=== PATIENT | male | born 1950 | race African-American/Black ===

== ENCOUNTER 2019-07-18 01:15 | Day surgery (SDC) | payer BC, SELFPAY ==
[2019-07-07 14:39] VITALS: BP 160/92; PULSE 54; RESP 18; TEMP 37.2; O2SAT 100; BMI 20.2
[2019-07-18] VITALS (15 sets, daily range): BP systolic 103–152; BP diastolic 64–92; PULSE 55–75; RESP 13–18; TEMP 36.2–36.7; O2SAT 90–100; BMI 19.6
[2019-07-18] MEDS: LACTATED RINGERS 1,000 ML 30 ML IV CONT ×2 (06:56→11:41)
--- NOTE | 2019-07-18 07:14 | P.PNAN_ITS ---
Anes - Initial Pre Proc Eval Procedure: Operation Date: 07/18/19 07:30 Proposed Procedures p Robotic Assisted Nerve Sparing Prostatectomy, Possible Pelvic Lymph Node Dissection - Gareth Solo MD Date/Time: 07/18/19 07:14 Surgeon: Gareth Solo MD Pre Op Diagnosis: Prostate Ca Patient Data Age: 69 Gender: M Height: 5 ft 10 in Weight: 60 kg Last Vital Signs Temp 98.0 F 07/18/19 06:21 Pulse 64 07/18/19 06:21 Resp 18 07/18/19 06:21 BP 152/92 H 07/18/19 06:21 Pulse Ox 100 07/18/19 06:21 Allergies Allergy/AdvReac Type Severity Reaction Status Date / Time No Known Allergies Allergy Verified 07/18/19 06:48 Home Medications Medication Instructions Recorded Confirmed Type amlodipine 5 mg PO DAILY 07/07/19 07/18/19 History atenolol 100 mg PO DAILY 07/07/19 07/18/19 History atorvastatin 10 mg PO DAILY 07/07/19 07/18/19 History hydrochlorothiazide 12.5 mg PO DAILY 07/07/19 07/18/19 History meloxicam 7.5 mg PO DAILY 07/07/19 07/18/19 History Patient hx anesthesia problems: none Family hx anesthesia problems: none [facility] Past Medical History Medical History (Updated 07/18/19 @ 07:13 by Tyler Nguyen MD) Hyperlipidemia Hypertension Prostate cancer Social History Social History Smoking packs per day: 1 Smoking cigarettes per day: 20.0 Years smoked: 40 Smoking pack-years: 40.00 Smoking status: Current every day smoker Alcohol intake: unknown Anes - Eval Final PreProcedure Day of Procedure 07/18/19 07:14 Patient weight: normal Heart: regular rate and rhythm Lungs: clear to auscultation Airway: Mallampati scale class II Neurological: alert and oriented Last oral intake: >/= 8 hours ASA classification: III Emergent: no Anesthetic plan: proceed Anesthesia type and monitoring: general ETT and standard monitoring Informed Consent: The patient's anesthetic plan and its attendant risks and benefits were discussed with the patient/family/POA. Questions were solicited and answers provided to the satisfaction of the patient/family/POA.
--- NOTE | 2019-07-18 07:16 | WPDHPUPDATE1 ---
History and Physical Update Update Date/Time: 07/18/19 07:16 History and Physical has been reviewed, including an updated exam of the patient. There are NO changes in the patient's condition. Risks, benefits, and alternatives have been discussed and questions answered. Patient agrees to proceed with procedure.
[2019-07-18] MEDS: ceFAZolin 2 GM/D5W 50 ML 2 GM/50 ML BAG IVPB (07:33)
--- NOTE | 2019-07-18 09:11 | SUR.OPER ---
patient maintains position and morin drainage jackie.
--- NOTE | 2019-07-18 11:22 | P.OP_ITS ---
Procedure Note - Detailed Date of procedure: 07/18/19 Pre-op diagnosis: Prostate Ca Post-op diagnosis: same Procedure performed: Robotic assisted bilateral nerve-sparing prostatectomy with right pelvic lymph node dissection Description of procedure: Patient was taken to the operative suite correctly identified. Once general anesthesia was obtained he was placed in low lying dorsal lithotomy position prepped draped usual sterile fashion. Sixty Georgian Joy was inserted into the bladder inflated with 10 cc of sterile saline. All pressure points were padded. A supraumbilical incision was made carried down to the rectus fascia. Veress needle was inserted and the abdomen insufflated to 15 mm Hg pressure. Appropriate working ports were placed in their locations. Patient was placed in steep Trendelenburg position and the robot was docked. He had quite a bit of adhesions along the sigmoid colon which were taken down. A standard posterior approach was performed. Seminal vesicles were dissected out in their entirety of the vas is were transected. The plane between the prostate and the rectum was developed. Bladder was then taken down in a standard fashion. Space of Retzius was developed. We will prosthetics were taken down. Dorsal venous complex was isolated using 0 Vicryl in then secured to the pubic bone. Bladder neck was then incised. Joy catheter was deflated and the posterior bladder neck was then transected. We were able to expose the previously dissected seminal vesicles and vas. Lateral pedicles were then taken down as well clipped. Bilateral nerve sparing was then performed in the standard fashion. Prostate was then lifted off of the rectum. Dorsal venous complex was transected. Urethra was also transected. Specimen was then placed Endo-Catch bag. A left pelvic lymph node dissection was performed with the borders being the obturator nerve and external iliac vein Ez's ligament and bifurcation. Surgicel was then placed over the dissected nerves as well as the right obturator fossa. The non VA was then reapproximated using 0 Vicryl. We performed a urethral stump to bladder neck reconstruction using V lock suture in a running fashion. There was good approximation of the mucosa. We placed a 16 Georgian Joy with 10 cc in the balloon and inflated the bladder to 180 cc. There was good hemostasis as well as no evidence of extravasation. A Carlos Eduardo- Mejia drain was then brought out through the most lateral arm port on the right. This was secured. All lap count needle count sponge counts were correct. Blood loss was only 50 cc. The robot was undocked. The Endo-Catch bag was then brought out through the midline incision. Rectus fascia was closed using 0 Vicryl in a running fashion. Subcuticular stitches were then placed in the skin. The skin was anesthetized using 1% lidocaine. Patient is taken recovery room stable condition. Anesthesia: GETA Surgeon: Gareth Solo MD Estimated blood loss (mL): 50 Drains: Yes Packing: No Pathology: yes Complications: No immediate complications Condition: stable Disposition: PACU
--- NOTE | 2019-07-18 12:20 | SUR.PHASEI ---
1210: Report given to KAI Zamora.
--- NOTE | 2019-07-18 12:34 | SUR.PHASEI ---
1230- family updated and sent to floor.
[2019-07-18] MEDS: HYDROMORPHONE HCL 1 MG/ML INJ 0.5 MG IV PUSH (12:49)
--- NOTE | 2019-07-18 14:54 | PC.NURSE ---
This patient, Cony Shoemaker Jr., was admitted to [facility] Surg Room 310-01. Patient/family oriented to hospital policies and general routines including ID bracelet, bed and alarms, visiting hours, pain management, procedures, bathroom and other care routines, personal items, smoking policy, room service/diet, and visiting hours. Valuables list has been completed. Information on how to activate the Rapid Response Team has been discussed. Patient/Family are encouraged to report perceived risks to care and to ask questions if they do not understand what they are told or what they should do.
[2019-07-18] MEDS: LACTATED RINGERS 1,000 ML 125 ML IV CONT (16:46)
[2019-07-18] MEDS: MORPHINE SULFATE 2 MG/ML INJ 1 MG IV PUSH ×2 (16:52→20:24)
[2019-07-19] VITALS (8 sets, daily range): BP systolic 112–137; BP diastolic 71–88; PULSE 68–78; RESP 14–20; TEMP 36.6–38.1; O2SAT 93–100
[2019-07-19] MEDS: LACTATED RINGERS 1,000 ML 125 ML IV CONT (01:55)
[2019-07-19] MEDS: MORPHINE SULFATE 2 MG/ML INJ 1 MG IV PUSH (02:20)
[2019-07-19 06:31] LABS: Hematocrit 35.9 % (42.0-52.0); Hemoglobin 12.2 g/dL (14.0-18.0)
[2019-07-19 06:44] LABS: Blood Urea Nitrogen 17 mg/dL (9-20); Calcium 8.8 mg/dL (8.4-10.2); Carbon Dioxide 27 mmol/L (22-30); Chloride 96 mmol/L (98-107); Estimated CRCL calculation 67 ml/min; Estimated Glomerular Filt Rate > 60; Glucose 110 mg/dL (75-110); Sodium 134 mmol/L (137-145)
[2019-07-19] MEDS: hydroCHLOROthiazide 12.5 MG CAPSULE PO (08:54)
[2019-07-19] MEDS: AMLODIPINE BESYLATE 5 MG TABLET PO (08:59)
[2019-07-19] MEDS: ATORVASTATIN 10 MG TABLET PO (09:00)
[2019-07-19] MEDS: HYOSCYAMINE SULFATE 0.125 MG TABLET SUBLINGUAL ×2 (09:12→13:21)
--- NOTE | 2019-07-19 09:17 | WPDUROPN2 ---
Progress Note: A&P Assessment and Plan (1) Prostate cancer: Code(s): C61 - Malignant neoplasm of prostate Status: Acute Assessment and Plan: Patient will keep morin in until next week after cystogram is completed. EAN ok to remove, very little output, apply a dry dressing and change daily and PRN according to drainage outuput. Patient will eat a clear liquid diet this am and advance to regular diet this afternoon. If he tolerates food and drink well, he is ok to discharge home this afternoon. Subjective Subjective Date/Time Seen: 07/19/19 09:17 POD #1 Prostatectomy Review of Systems Cardiovascular: Cardiovascular: Denies chest pain and Denies chest pain at rest Gastrointestinal: Gastrointestinal: Reports abdominal pain (only tender at incision sites), Denies diarrhea, Denies nausea and Denies vomiting Genitourinary: Genitourinary: Reports hematuria and Reports other (morin catheter in place) Exam Resp: Effort & Inspection: normal respiratory effort Cardio: Rate: regular rate GI: GI Palp: Yes Tenderness to palpation present (GI) (at incision sites only, all are well approximated, no drainage present) : Meatus: Blood at meatus present Urinary Catheter: Urinary Catheter: patent and draining, urine clear and urine pink Extrem: General: no edema Objective Data Vital Signs Vital Signs: Vital Signs - 24 hr 07/18/19 11:40 07/18/19 11:55 07/18/19 12:10 Temperature 97.1 F L Pulse Rate 55 L 56 L 57 L Respiratory Rate 16 15 16 Blood Pressure 103/64 112/69 123/72 Pulse Oximetry 100 100 100 07/18/19 12:25 07/18/19 12:40 07/18/19 12:55 Temperature Pulse Rate 64 65 62 Respiratory Rate 18 18 15 Blood Pressure 109/70 120/73 116/72 Pulse Oximetry 96 95 95 07/18/19 13:10 07/18/19 13:25 07/18/19 13:40 Temperature Pulse Rate 60 70 64 Respiratory Rate 14 13 14 Blood Pressure 112/73 128/80 106/76 Pulse Oximetry 95 97 98 07/18/19 13:50 07/18/19 14:05 07/18/19 15:42 Temperature 97.4 F L 97.4 F L Pulse Rate 68 66 66 Respiratory Rate 16 16 16 Blood Pressure 121/77 114/75 Pulse Oximetry 90 91 91 07/18/19 15:59 07/18/19 22:00 07/19/19 02:00 Temperature 98 F 98.6 F Pulse Rate 70 75 77 Respiratory Rate 17 16 20 Blood Pressure 117/79 124/75 133/73 Pulse Oximetry 93 96 93 07/19/19 07:08 07/19/19 07:40 Temperature 98.7 F 97.9 F Pulse Rate 78 77 Respiratory Rate 20 14 Blood Pressure 124/82 128/71 Pulse Oximetry 100 96 Intake/Output Intake/Output: Intake & Output 07/16/19 07/17/19 07/18/19 07/19/19 23:59 23:59 23:59 23:59 Intake Total 995 1250 Output Total 365 800 Balance 630 450 Meds/Results Medications: Active Medications Generic Name Dose Route Start Last Admin Trade Name Freq PRN Reason Stop Dose Admin Hydrocodone Bitart/Acetaminophen 1 tab 07/18/19 13:45 [place] 5-325 Mg PO Q6H PRN Pain Rated 1-3 Hydrocodone Bitart/Acetaminophen 2 tab 07/18/19 13:45 07/19/19 07:56 [place] 5-325 Mg PO 2 tab Q6H PRN Administration Pain Rated 4-6 Amlodipine Besylate 5 mg 07/19/19 09:00 07/19/19 08:59 Norvasc PO 5 mg DAILY COLIN Administration Atenolol 100 mg 07/19/19 09:00 07/19/19 08:59 Tenormin PO Not Given DAILY COLIN Atorvastatin Calcium 10 mg 07/19/19 09:00 07/19/19 09:00 Lipitor PO 10 mg DAILY COLIN Administration Hydrochlorothiazide 12.5 mg 07/19/19 09:00 07/19/19 08:54 Hydrochlorothiazide PO 12.5 mg DAILY COLIN Administration Hyoscyamine 0.125 mg 07/18/19 13:45 07/19/19 09:12 Levsin Tablet SUBLINGUAL 0.125 mg Q4H PRN Administration Bladder Spasm Lactated Ringer's 1,000 mls @ 125 mls/hr 07/18/19 13:45 07/19/19 01:55 Lr - Lactated Ringers Iv IV CONT 125 mls/hr .Q8H COLIN Administration Ketorolac Tromethamine 15 mg 07/18/19 13:45 Toradol Inj IV PUSH 07/19/19 13:46 Q6H PRN Pain Rated 4-6 Levofloxacin 500 mg 07/19/19 09:00 07/19/19 08:5
--- NOTE | 2019-07-19 14:10 | WPDANESPN ---
Anes - Prog Note Post-Op Date/Time: 07/19/19 14:10 Cardiovascular status: normal Respiratory status: normal Airway patency: baseline Mental status: baseline Post-Op hydration status: normal Vital Signs: Last Vital Signs Temp 36.8 C 07/19/19 12:30 Pulse 68 07/19/19 10:06 Resp 14 07/19/19 10:06 BP 137/71 07/19/19 10:06 Pulse Ox 95 07/19/19 10:06 I/O: Intake & Output 07/18/19 07/19/19 07/19/19 23:59 07:59 15:59 Intake Total 445 1250 Output Total 300 800 Balance 145 450 Laboratory Tests 07/19/19 05:50 07/19/19 05:50 07/19/19 07/19/19 05:50 05:50 Hgb 12.2 L D Hct 35.9 L Sodium 134 L Potassium 3.0 L Chloride 96 L Carbon Dioxide 27 BUN 17 Creatinine 0.80 Estim Creat Clear Calc 67 Estimated GFR > 60 Glucose 110 Calcium 8.8 Post-procedural complaints: none Patient Feedback: Patient satisfied with anesthetic care.
--- NOTE | 2019-07-19 14:41 | PC.NURSE ---
On 07/19/19, the student, DAHLIA[ ], provided care and [facility] patient. I have reviewed the student's documentation and agree with the findings.
--- NOTE | 2019-07-19 14:47 | PC.NURSE ---
On 07/19/19, the student, [ Cynthia Donald], provided care and completed [facility] documentation on this patient. I have reviewed the student's documentation and agree with the findings.
== END 2019-07-19 15:55 | disposition home or self-care (01) ==
LOC: ANHSURGERY 06:05 → ANH3MEDSUR 13:49
PROVIDERS: PCP Internal Medicine; Visit Provider Urology
PROC: 0VT04ZZ Resection of Prostate, Percutaneous Endoscopic Approach (ICD-10-PCS; CPT 55867; principal; 2019-07-18 07:30)
DX: C61 Malignant neoplasm of prostate (principal); I10 Essential (primary) hypertension; E78.5 Hyperlipidemia, unspecified; F17.210 Nicotine dependence, cigarettes, uncomplicated
CPT/HCPCS: 55866; 38571; S2900; 36415; 80048; 85014; 85018; 88304; 88305; 88307; 88309; A9270; J0131; J0330; J0690; J1100; J1170; J2250; J2270; J2370; J2405; J2704; J2710; J3010; J7030; J7120; Q9968

== ENCOUNTER 2019-07-27 09:42 | Outpatient (CLI) | payer BC, SELFPAY ==
--- NOTE | ~2019-07-27 | XR_ITS ---
EXAMINATION: XR cystogram EXAM DATE: 07/27/2019 10:36 INDICATION: Cystogram following prostatectomy. TECHNIQUE: Cystogram performed under fluoroscopic guidance performed through Joy catheter in place on patient arrival. Dose reduction digital pulsed fluoroscopy was used at 4 frames per second with D AP 1.5 Gycm2. No prior study. FINDINGS: Patient tolerated approximately 200 mL of contrast. There was no contrast extravasation. T here is small bladder diverticulum along the right posterolateral aspect of the bladder. No ureteral reflux. IMPRESSION: No bladder contrast extravasation. Small bladder diverticulum. Reviewed, dictated and finalized at location A. ER ODDS
== END 2019-07-27 09:43 | disposition home or self-care (01) ==
PROVIDERS: PCP Internal Medicine; Visit Provider Urology
DX: C61 Malignant neoplasm of prostate (principal)
CPT/HCPCS: 51600; 74430; Q9967

== ENCOUNTER 2022-03-13 08:21 | Outpatient (CLI) | payer MEDICARE, SELFPAY ==
--- NOTE | ~2022-03-13 | CT_ITS ---
EXAMINATION: CT abdomen pelvis w con DATE: 03/13/2022 09:08 INDICATION: Malignant neoplasm of prostate gland. Non-small cell cancer right lung. TECHNIQUE: Computed tomography (CT) of the abdomen and pelvis was performed with 100 CC Omnipaque int ravenous contrast. Automated exposure control and iterative reconstruction technique were employed. E xam dose: 186.25 mGy-cm total exam DLP. COMPARISON: None. FINDINGS: The lung bases are clear of infiltrate or consolidation. Normal heart size. No pericardial or pleural effusion. Small sliding hiatal hernia. Approximately 3 mm and 7 mm left hepatic cysts. The liver is otherwise unremarkable. The gallbladder is unremarkable. No bile duct or pancreatic duct dilatation. Normal splenic size. Normal morphology of the adrenal glands. There is a focal upper pole left renal scar. There are at least four right renal rounded lesions measuring up to 6 mm. There are approximately six rounded lesions of the left kidney, measuring up to 10 mm. The lesions have variable attenuation, from 17 to 147 H.U. These are indeterminate. Consider compar bryce with prior CT or MR examinations, if available. MR imaging may be helpful for further evaluatio n otherwise. The urinary bladder is unremarkable. The prostate gland is not visualized. There is extensive abdominal aortic and iliac arterial calcification; no abdominal aortic aneurysm. No intra peritoneal or retroperitoneal or pelvic mass lesion or lymphadenopathy. Normal appendix. There is diverticulosis of the colon; no evidence of diverticulitis. No bowel obst ruction or intraperitoneal free air. There is minimal grade 1 anterolisthesis at L2-3. Severe degenerative disc disease at L4-5 and L5-S1. There is severe patchy cystic and sclerotic change of the right acetabulum and right femoral head, monge ggesting avascular necrosis and severe secondary osteoarthritis. IMPRESSION: Small sliding hiatal hernia Small hepatic cysts Multiple indeterminate bilateral renal masses; differential diagnosis includes cysts, complicated or hemorrhagic or proteinaceous cysts versus malignant hypernephroma Probable prostatectomy Diverticulosis of the colon Multi-level degenerative disc disease of lumbar spine Severe secondary osteoarthritis, avascular necrosis of femoral head Reviewed, dictated and finalized at Location A. Reviewed, dictated and finalized at location B. IMPRESSION: Small sliding hiatal hernia Small hepatic cysts Multiple indeterminate bilateral renal masses; differential diagnosis includes cysts, complicated or hemorrhagic or proteinaceous cysts versus malignant hyper nephroma Probable prostatectomy Diverticulosis of the colon Multi-level degenerative disc disease of lumbar spine Severe secondary osteoarthritis, avascular necrosis of femoral head
[2022-03-13 08:57] LABS: Estimated Glomerular Filt Rate > 60
== END 2022-03-13 08:22 | disposition home or self-care (01) ==
PROVIDERS: PCP Internal Medicine; Visit Provider Internal Medicine Hematology & Oncology
DX: C34.91 Malignant neoplasm of unspecified part of right bronchus or lung (principal); K44.9 Diaphragmatic hernia without obstruction or gangrene; K76.89 Other specified diseases of liver; K57.30 Diverticulosis of large intestine without perforation or abscess without bleeding; M51.36 Other intervertebral disc degeneration, lumbar region
CPT/HCPCS: 74177; Q9967

== ENCOUNTER 2022-03-17 01:33 | Outpatient (CLI) | payer MEDICARE, SELFPAY ==
[2022-03-11 13:15] VITALS: BMI 18.9
--- NOTE | 2022-03-11 13:17 | PC.NURSE ---
Pre Radiology instructions Report to the Outpatient Waiting Room, entrance under the green pavilion located off [facility], at time _0900 on date __03/17/22 . Procedure Time: __1100 . YOU MAY BE MONITORED AT HOSPITAL FOR UP TO 4 HOURS AFTER YOUR PROCEDURE. One visitor will be allowed to accompany the patient into the hospital. The visitor will be instructed to remain with patient at all times or leave the building due to restrictions. We will allow the visitor to come back to the postoperative area when patient is ready. NO children visitors allowed at this time. You and your visitor will be asked to self-screen and do not enter if you have any COVID symptoms. A mask is required within the hospital. Patients are to have no food or drink 6 hours prior to procedure time Driving will be restricted after the procedure, you must have a person to drive you home. Labs will be drawn in preop area and once reviewed, you will be taken to radiology area for procedure. When the procedure is completed, you will be taken to outpatient where you will be monitored for several hours. You may have one visitor in this area. Other than holding anti-coagulants, patient may take other medication(s) as scheduled. Prior to your appointment date patients are instructed to hold anti-coagulants after discussing with ordering provider to stop. If unable to discontinue anti-coagulants please notify radiologist. No aspirin or warfarin (Coumadin) for 7 days prior to the procedure. No clopidogrel (Plavix), ticagrelor (Brilinta), prasugrel (Effient) or dabigatran (Pradaxa) for 5 days prior to the procedure. No rivaroxaban (Xarelto), apixaban (Eliquis), dipyridamole (Aggrenox or Persantine) or cilostazol (Pletal) for 2 days prior to the procedure. Medications to discontinue per physician: ____NONE Date to take last dose: Please leave all valuables, including medications, at home the day of procedure. The hospital will not accept responsibility for valuables. Wear comfortable, loose fitting clothing. Follow any additional instructions given to you from ordering provider. Telephone instructions given to __PATIENT and asked if any additional questions and then verbalized understanding. Patient advised to call scheduling provider office or registration scheduling [phone] if any additional questions.
[2022-03-17] VITALS (12 sets, daily range): BP systolic 158–185; BP diastolic 75–106; PULSE 52–60; RESP 14–18; TEMP 36.8; O2SAT 99–100
--- NOTE | ~2022-03-17 | XR_ITS ---
EXAMINATION: XR chest 1V portable 03/17/2022 14:09 INDICATION: Post image guided lung biopsy PROCEDURE: AP portable chest COMPARISON: Comparison to multiple prior studies sequentially, with oldest reviewed study dated 03/17. FINDINGS: There is nodule in the right upper lobe, suspicious for bronchogenic carcinoma. The cardiom ediastinal silhouette is within normal limits. There are no pleural effusions. There is no pneumoth orax suspected. IMPRESSION: 1: Right upper lobe nodule, suspicious for bronchogenic carcinoma. Reviewed, dictated and finalized at location B.
--- NOTE | ~2022-03-17 | XR_ITS ---
EXAMINATION: XR chest 1V DATE: 03/17/2022 11:05 INDICATION: Right lung nodule status post percutaneous biopsy. TECHNIQUE: A single frontal view of the chest was obtained. COMPARISON: Chest CT 03/17/2022 FINDINGS: The lungs are hyperexpanded, consistent with emphysema. There is a nodule in right lung upp er lobe. No pleural effusion or pneumothorax. The heart size is normal. IMPRESSION: 1. Right lung upper lobe nodule suspicious for primary bronchogenic carcinoma. 2. Emphysema. Reviewed, dictated and finalized at location A.
--- NOTE | ~2022-03-17 | XR_ITS ---
EXAMINATION: XR chest 1V portable DATE: 03/17/2022 12:14 INDICATION: Right lung nodule status post percutaneous biopsy. TECHNIQUE: A single frontal view of the chest was obtained on 2 radiographs. COMPARISON: Chest single view at 11:03 AM FINDINGS: There is a nodule in right upper lobe. No pleural effusion or pneumothorax. The heart size is normal. IMPRESSION: 1. Nodule in right lung upper lobe suspicious for primary bronchogenic carcinoma. Reviewed, dictated and finalized at location A. IMPRESSION: 1. Nodule in right lung upper lobe suspicious for primary bronchogenic carcinom a.
--- NOTE | ~2022-03-17 | CT_ITS ---
EXAMINATION: CT biopsy lung w/imaging DATE: 03/17/2022 11:08 INDICATION: Mass of upper lobe of right lung. TECHNIQUE: The procedure including the risks, benefits, and alternatives and possibility of chest tub e placement were discussed with the patient. Risks discussed included infection, hemorrhage, approxim ately 1/3 risk of pneumothorax, approximately 1/10 risk of pneumothorax severe enough to warrant ches t tube placement, and rarely . The patient understood the risks and agreed to proceed. The patie nt was placed supine with right side elevated. The skin overlying the right chest was prepped and dr aped in sterile fashion. Anesthetic was administered with 1% lidocaine subcutaneously. A 19 gauge o uter needle was advanced under CT guidance to the lesion of interest. A 20 gauge core biopsy needle w as then used to obtain 3 core biopsy specimens. The needle was removed and the entry site was cleaned and dressed. The mA was adjusted according to patient size. Iterative reconstruction technique was e mployed. The dose-length product was 330.30 mGy-cm. There were no immediate complications. FINDINGS: CT images demonstrate the outer needle tip adjacent to a 1.8 cm nodule in right upper lobe. IMPRESSION: 1. CT-guided core needle biopsy of a 1.8 cm nodule in right lung upper lobe. Reviewed, dictated and finalized at location A.
[2022-03-17 09:59] LABS: Mean Platelet Volume 10.2 fl (7.4-10.4); Platelet Count Result 315 k/mm3 (150-375)
[2022-03-17 10:10] LABS: INR 1.1; Prothrombin Time 13.7 Seconds (11.1-14.7)
== END 2022-03-17 14:46 | disposition home or self-care (01) ==
PROVIDERS: PCP Internal Medicine; Referring Provider Internal Medicine Hematology & Oncology; Visit Provider Radiology Diagnostic Radiology
PROC: BB24ZZZ Computerized Tomography (CT Scan) of Bilateral Lungs (ICD-10-PCS; CPT 32408; principal; 2022-03-17 11:00)
DX: C34.11 Malignant neoplasm of upper lobe, right bronchus or lung (principal)
CPT/HCPCS: 32408; 36415; 71045; 85049; 85610; 88305; 88342

== ENCOUNTER 2022-05-25 10:48 | Outpatient (CLI) | payer MEDICARE, SELFPAY ==
--- NOTE | ~2022-05-25 | MR_ITS ---
EXAMINATION: MR abdomen wo/w con DATE: 05/25/2022 11:41 INDICATION: Recently diagnosed lung cancer presenting for evaluation of a PET avid left renal lesion identified on outside institution PET study. TECHNIQUE: Magnetic resonance imaging (MRI) of the abdomen was performed without and with 12 mL Multi margie intravenous contrast. Sequences included coronal T2-weighted SS-FSE, coronal and axial FS 2D-F IESTA, axial STIR FSE, axial T2-weighted SS-FSE, axial T2-weighted FS SS-FSE, axial diffusion-weighte d SE, axial dual-echo T1-weighted FSPGR, and axial and coronal T1-weighted LAVA. Postcontrast axial T 1-weighted LAVA images were obtained in a time course. Postcontrast coronal T1-weighted LAVA images w ere obtained. COMPARISON: None. FINDINGS: Heart size is normal. No pericardial or pleural effusion. 8 mm nonenhancing T2 hyperintense cyst in t he left hepatic lobe. The gallbladder, spleen, pancreas and bilateral adrenal glands are normal. No b owel obstruction. Magnetic field artifact at the base of the bladder which may reflect postoperative change of prior prostatectomy. Advanced right hip osteoarthritis with prominent subarticular cystic c hanges with peripheral synovial enhancement. No other abnormally enhancing bone lesions. There several bilateral small renal lesions, the largest 2 lesions are 1.4 cm and 1.0 cm homogeneousl y T2 hyperintense nonenhancing simple cyst at the lower pole of the left kidney. The remaining lesion s are all subcentimeter which along with the small amount of motion on the. Postcontrast LAVA images moderately limited assessment for enhancement. 3 additional subcentimeter lesions in the right kidney are similarly T2 hyperintense and without evident enhancement consistent with simple cysts. There ar e also a few bilateral T2 very hypointense as well as increased T1 signal and without suggestion of c ontrast enhancement most likely representing proteinaceous/hemorrhagic cyst. At the posterior interpo lar region of the left kidney there is a 1 cm nodule which appears relatively isointense on both T1 a nd T2-weighted images which appears to demonstrate relatively unequivocal contrast enhancement with s lightly slower comparison the surrounding renal parenchyma but becoming nearly isointense to the surr ounding parenchyma on the delayed post contrast images which is concerning for renal cell carcinoma o r less likely metastatic disease. No other suspicious renal lesions identified. IMPRESSION: 1. 10 mm enhancing lesion at the posterior interpolar region of the left kidney concerning for neopla sm given the absence of additional lesions suspicious for metastatic disease would favor renal cell c arcinoma. Reviewed, dictated and finalized at location A. PURPOSE CLERK IMPRESSION: 1. 10 mm enhancing lesion at the posterior interpolar region of the left kidney concerning for neoplasm given the absence of additional lesions suspicious for metastatic disease would favor renal cell carcinoma.
== END 2022-05-25 10:49 | disposition home or self-care (01) ==
PROVIDERS: PCP Internal Medicine; Visit Provider Radiology Radiation Oncology
DX: D41.12 Neoplasm of uncertain behavior of left renal pelvis (principal)
CPT/HCPCS: 74183; A9577

== ENCOUNTER 2022-06-16 09:02 | Outpatient (CLI) | payer MEDICARE, SELFPAY ==
--- NOTE | ~2022-06-16 | CT_ITS ---
Clinical Indication: Non-small cell carcinoma right lung CT Scan of the Chest with Contrast: Technique: Contiguous sections were acquired throughout the chest after intravenous administration of 75 cc of Omnipaque 350. Dose reduction technique was used on this scan by utilizing automated exposu re control and iterative reconstruction technique. The dose-length product (DLP) was 169.27 mGy-cm. COMPARISON: 03/17/2022 Findings: There is no evidence of any significant mediastinal, hilar or axillary lymphadenopathy. There is no f illing defect in the pulmonary arterial tree to suggest pulmonary embolus. There is no evidence of ao rtic dissection or aneurysm. There is no evidence of pleural or pericardial effusion. There is a new 3 mm irregular right apical pulmonary nodule (axial image 21). Pleural-based mass at t he lateral right upper lobe is probably minimally decreased in size, measuring up to 1.8 x 0.9 cm in size (axial image 54). Stable probable area of pleural-based scarring in the more anterior right uppe r lobe (axial image 42). Minimal subpleural reticulation in the upper lobes is similar to prior exam. There is a new 3 mm nodule at the left lung apex (axial image 29). Images through the upper abdomen reveal no abnormalities. Impression: 1.8 x 0.9 cm pleural-based mass at the lateral right upper lobe is probably minimally decreased in si ze. This could reflect minimal partial response to therapy. 2 new 3 mm pulmonary nodules, one at each of the lung apices, as detailed above. These are indetermin ate. Continued follow-up advised. Stable probable pleural-based scarring at the anterior right upper lobe with minimal subpleural retic ulation bilaterally. Reviewed, dictated and finalized at location M. [employer]ER Impression: 1.8 x 0.9 cm pleural-based mass at the lateral right upper lobe is probably min imally decreased in size. This could reflect minimal partial response to therap y. 2 new 3 mm pulmonary nodules, one at each of the lung apices, as detailed above . These are indeterminate. Continued follow-up advised. Stable probable pleural-based scarring at the anterior right upper lobe with mi nimal subpleural reticulation bilaterally.
[2022-06-16 09:18] LABS: Estimated Glomerular Filt Rate > 60
== END 2022-06-16 09:03 | disposition home or self-care (01) ==
LOC: ANHIMG 09:03
PROVIDERS: PCP Internal Medicine; Visit Provider Internal Medicine Hematology & Oncology
DX: C34.91 Malignant neoplasm of unspecified part of right bronchus or lung (principal); R91.8 Other nonspecific abnormal finding of lung field
CPT/HCPCS: 71260; Q9967

== ENCOUNTER 2022-07-02 09:52 | Outpatient (CLI) | payer MEDICARE, SELFPAY ==
[2022-07-02 10:02] LABS: Basophils Percent Auto 0.2 % (0.2-1.2); Eosinophils Percent Auto 0.1 % (0-4.4); Hematocrit 41.9 % (42.0-52.0); Hemoglobin 14.4 g/dL (14.0-18.0); Immature Granulocyte Absolute 0.05 K/mm3 (0.00-0.031); Immature Granulocyte Percent A 0.3 % (0-0.5); Lymphocytes Absolute Auto 1.44 K/mm3 (0.9-3.2); Lymphocytes Percent Auto 9.9 % (18.3-44.2); Mean Corpuscular HGB Conc 34.4 g/dl (32-36); Mean Corpuscular Hemoglobin 30.9 pg (26-34); Mean Corpuscular Volume 89.9 fl (80-100); Mean Platelet Volume 10.4 fl (7.4-10.4); Monocytes Absolute Auto 2.1 K/mm3 (0.1-0.6); Monocytes Percent Auto 14.3 % (2.6-8.5); Neutrophils Absolute Auto 10.9 K/mm3 (1.3-6.7); Neutrophils Percent Auto 75.2 % (45.5-73.1); Platelet Count Result 286 k/mm3 (150-375); Red Blood Count 4.66 M/mm3 (4.6-6.20); Red Cell Distribution Width 13.2 % (11.5-14.5); White Blood Count 14.5 K/mm3 (4.5-10.0)
[2022-07-02 10:08] LABS: Blood Urea Nitrogen 15 mg/dL (8-26); Carbon Dioxide 30 mmol/L (22-30); Chloride 92 mmol/L (98-109); Estimated Glomerular Filt Rate > 60; Glucose 145 mg/dL (70-105); Ionized Calcium (POC) 1.11 mmol/L (1.11-1.31); Potassium 3.1 mmol/L (3.5-4.9); Sodium 135 mmol/L (138-146)
[2022-07-02 10:08] LABS: Atypical Lymphocytes Present; Platelet Estimate Adequate (Adequate); Schistocytes None Seen (NORMAL)
[2022-07-02 10:59] LABS: Alanine Aminotransferase 19 U/L (6-50); Albumin Level 4.1 g/dL (3.5-5.1); Alkaline Phosphatase 118 U/L (38-126); Anion Gap 10 mmol/L (8-16); Aspartate Amino Transferase 26 U/L (17-59); Blood Urea Nitrogen 16 mg/dL (9-20); Calcium 9.2 mg/dL (8.4-10.2); Carbon Dioxide 30 mmol/L (22-30); Chloride 94 mmol/L (98-107); Estimated Glomerular Filt Rate > 60; Glucose 145 mg/dL (65-110); Potassium 3.1 mmol/L (3.4-5.0); Sodium 134 mmol/L (137-145)
== END 2022-07-02 09:53 | disposition home or self-care (01) ==
LOC: ANHLAB 09:53
PROVIDERS: PCP Internal Medicine; Visit Provider Internal Medicine Hematology & Oncology
DX: C34.91 Malignant neoplasm of unspecified part of right bronchus or lung (principal)
CPT/HCPCS: 36415; 80047; 80053; 85025

== ENCOUNTER 2022-07-14 14:41 | Emergency (ER) | payer MEDICARE, SELFPAY ==
[2022-07-14] VITALS (12 sets, daily range): BP systolic 95–133; BP diastolic 50–101; PULSE 89–156; RESP 16–40; TEMP 36.1; O2SAT 90–92
--- NOTE | ~2022-07-14 | CT_ITS ---
EXAMINATION: CTA chest PE abdomen pel DATE: 07/14/2022 16:26 INDICATION: Shortness of breath. TECHNIQUE: Computed tomography angiography (CTA) of the chest was performed with 100 mL Omnipaque-350 intravenous contrast timed to evaluate the pulmonary arteries. Coronal maximum intensity projection 3D-reconstructions were created by the technologist. Computed tomography (CT) of the abdomen and pelv is was performed with intravenous contrast. Automated exposure control and iterative reconstruction t echnique were employed. The dose-length product was 784.24 mGy-cm. COMPARISON: Chest CT 06/16/2022, abdomen MRI 05/25/2022 FINDINGS: CTA chest: There is mild emphysema. There is a 12 mm nodule in right lung upper lobe, stable from . There is focal peripheral scarring in right upper lobe. There are scattered nodules in the l ungs measuring up to 3 mm with an upper lung predominance. No pleural effusion. 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 There is a large hemopericardium. The heart is small w ith worsening from prior imaging, consistent with cardiac tamponade. There are coronary artery calcif ications. There is no pulmonary embolus. There is severe cervical spondylosis and mild thoracic spond ylosis. CT abdomen and pelvis: The liver demonstrates periportal edema. There is heterogeneous liver enhancem ent, which may be transient hepatic attenuation difference. The gallbladder is contracted. The spleen and pancreas are normal. There is hyperenhancement of the adrenal glands, likely secondary to hypope rfusion. There are cysts in the kidneys measuring up to 10 mm on the left. There are no dilated loops of bowel. The appendix is normal. There is a left inguinal hernia containing fat. There are no patho logically enlarged lymph nodes. There is no free intraperitoneal fluid. There is severe lumbar spondy losis. IMPRESSION: 1. Type A aortic dissection with hemopericardium and cardiac tamponade. I called this result to Dr. Kika diaz at 16:59. Reviewed, dictated and finalized at location A. HOLOGY TEACHER IMPRESSION: 1. Type A aortic dissection with hemopericardium and cardiac tamponade. I treviño d this result to Dr. Delatorre at 16:59.
--- NOTE | 2022-07-14 14:46 | ED.SOB ---
HPI - SOB/Dyspnea General Chief Complaint: Shortness of Breath/Dyspnea Stated Complaint: Resp distress History of Present Illness HPI Narrative: Patient is a 72-year-old male with a history of lung cancer status post radiation therapy, hyperlipidemia, hypertension presenting with shortness of breath. Patient states that he finished radiation therapy for lung cancer several weeks ago. Since that time he has been doing pretty well. Today he developed acute onset shortness of breath. He called EMS who found him to be saturating approximately 80% on room air. He states he is not on oxygen normally. States that he feels slightly improved after being placed on oxygen by EMS. He was also noted to be in A. fib RVR. Patient denies fevers or chills, headache, chest pain, abdominal pain, nausea or vomiting, leg swelling. Related Data Home Medications Medication Instructions Recorded Confirmed hydrochlorothiazide 12.5 mg capsule 12.5 mg PO DAILY 07/07/19 06/24/22 meloxicam 7.5 mg tablet 7.5 mg PO DAILY 07/07/19 06/24/22 metoprolol tartrate 100 mg tablet 100 mg PO DAILY 03/11/22 06/24/22 atorvastatin 20 mg tablet 20 mg PO DAILY 03/30/22 06/24/22 Allergies Allergy/AdvReac Type Severity Reaction Status Date / Time No Known Allergies Allergy Verified 07/14/22 14:50 Review of Systems Review of Systems: All systems reviewed & are unremarkable except as noted in HPI and below PMFSH Past Medical History Medical History Hyperlipidemia Hypertension Lung cancer Primary cancer of right upper lobe of lung Primary cancer of right upper lobe of lung Prostate cancer Surgical History Surgical History H/O prostatectomy H/O prostatectomy Family History Family History Mother Hypertension Social History Social History Smoking packs per day: 1 Smoking cigarettes per day: 20.0 Years smoked: 50 Smoking pack-years: 50.00 Smoking status: Current every day smoker Tobacco type: cigarettes Additional smoking assessment comments: less than a pack a day today Alcohol intake: former Substance use: never Gender identity (if verbalized by the patient): Male Spiritual care concerns: No Agree to blood products: Yes Exam Narrative: GENERAL: Frail, chronically ill-appearing male in moderate respiratory distress HEAD: Normocephalic, atraumatic. EYES: PERRLA and EOMI. ENT: Nares clear, no rhinorrhea or epistaxis. Mucous membranes dry NECK: Supple. CHEST: Tachypneic, crackles in the bases, moderate respiratory distress but able to speak in full sentences HEART: Irregular rhythm, tachycardic. No murmur heard. Normal peripheral pulses. ABDOMEN: Soft, nontender, nondistended EXTREMITIES: Normal range of motion. No edema. SKIN: Warm, dry, no rash. NEURO: No focal deficits. Alert and oriented x3. Course Vital Signs Vital signs: Vital Signs Temperature 97.0 F L 07/14/22 14:41 Pulse Rate 156 H 07/14/22 14:41 Respiratory Rate 40 H 07/14/22 14:41 Blood Pressure 123/77 07/14/22 14:41 Temperature 97.0 F L 07/14/22 14:41 Pulse Rate 112 H 07/14/22 18:39 Respiratory Rate 28 H 07/14/22 18:39 Blood Pressure 123/84 07/14/22 18:39 Pulse Oximetry 92 07/14/22 16:40 Oxygen Delivery Nasal Cannula 07/14/22 16:40 Oxygen Flow Rate 2 07/14/22 16:40 MDM - SOB/Dyspnea MDM Narrative Medical decision making narrative: Patient is a 72-year-old male presenting with dyspnea. On arrival, patient is breathing approximately 40 times a minute. Appears to be in A. fib RVR with a rate in the 140s to 150s. He was saturating 80% on room air. EKG per my interpretation shows atrial fibrillation with RVR with a rate of 152, normal axis, ST depressions especially in lateral leads, no ST e
--- NOTE | 2022-07-14 14:47 | ECG_ITS ---
Measurements Intervals [place] Rate: 152 P: DC: 0 QRS: 84 QRSD: 129 T: -42 QT: 272 QTc: 433 Interpretive Statements ATRIAL FIBRILLATION WITH RAPID VENTRICULAR RESPONSE INTRAVENTRICULAR CONDUCTION DELAY ST-T WAVE ABNORMALITY IN ANT/INF LEADS- CONSIDER ISCHEMIA ABNORMAL ECG COMPARED TO ECG 07/07/2019 15:13:07 ATRIAL FIBRILLATION NOW PRESENT ST-T WAVE ABNORMALITY NOW PRESENT Electronically Signed On 07-14-2022 15:37:05 HOME WORKER by Alex Colin D.O.
[2022-07-14] MEDS: SODIUM CHLORIDE 0.9% IV 1,000 ML 999 ML IV CONT ×3 (14:54→16:32)
[2022-07-14 15:13] LABS: Basophils Absolute Auto 0.1 K/mm3 (0.0-0.1); Basophils Percent Auto 0.3 % (0.2-1.2); Eosinophils Absolute Auto 0.1 K/mm3 (0-0.3); Eosinophils Percent Auto 0.3 % (0-4.4); Hemoglobin 10.8 g/dL (14.0-18.0); Immature Granulocyte Absolute 0.63 K/mm3 (0.00-0.031); Immature Granulocyte Percent A 4.3 % (0-0.5); Lymphocytes Absolute Auto 2.92 K/mm3 (0.9-3.2); Lymphocytes Percent Auto 20.1 % (18.3-44.2); Mean Corpuscular HGB Conc 31.8 g/dl (32-36); Mean Corpuscular Volume 94.4 fl (80-100); Mean Platelet Volume 9.5 fl (7.4-10.4); Monocytes Absolute Auto 1.1 K/mm3 (0.1-0.6); Monocytes Percent Auto 7.4 % (2.6-8.5); Neutrophils Absolute Auto 9.8 K/mm3 (1.3-6.7); Neutrophils Percent Auto 67.6 % (45.5-73.1); Platelet Count Result 684 k/mm3 (150-375); Red Cell Distribution Width 13.8 % (11.5-14.5); White Blood Count 14.5 K/mm3 (4.5-10.0)
[2022-07-14 15:23] LABS: Alveolar/Arterial O2 Gradient 15.7 mmHg; Fractional Inspired Oxygen 21 %; HCO3 ABG 16.7 mEq/l (22.0-26.0); Oxygen Content ABG 15.5 %vol (16.0-22.0); Oxygen Saturation ABG 98.1 % (95.0-100.0); PCO2 ABG 25.1 mmHg (35.0-45.0); PO2 FiO2 Ratio Arterial Blood 4.95 %; Total Hemoglobin 11.4 g/dL (12.0-18.0); pH ABG 7.441 (7.350-7.450)
[2022-07-14 15:23] LABS: INR 1.4; Prothrombin Time 16.6 Seconds (11.1-14.7)
[2022-07-14 15:24] LABS: Modified Allen's Test Pass; Site Drawn RIGHT RADIAL
[2022-07-14 15:24] LABS: Partial Thromboplastin Time 32.5 SECONDS (22.3-36.8)
[2022-07-14 15:26] LABS: Albumin Level 3.3 g/dL (3.5-5.1); Alkaline Phosphatase 409 U/L (38-126); Anion Gap 15 mmol/L (8-16); Aspartate Amino Transferase 120 U/L (17-59); Bilirubin,Total 1.4 mg/dL (0.2-1.3); Blood Urea Nitrogen 17 mg/dL (9-20); Calcium 8.6 mg/dL (8.4-10.2); Carbon Dioxide 25 mmol/L (22-30); Chloride 91 mmol/L (98-107); Estimated CRCL calculation 49 ml/min; Estimated Glomerular Filt Rate > 60; Glucose 239 mg/dL (65-110); Sodium 131 mmol/L (137-145)
[2022-07-14 15:30] LABS: Alanine Aminotransferase 69 U/L (6-50)
[2022-07-14 15:34] LABS: NT Pro B Type Natriuretic Pept 2390 pg/mL (19.9-100); Troponin I 0.032 ng/mL (0.000-0.034)
[2022-07-14 15:49] LABS: Influenza A QL RT-PCR Negative (Negative); Influenza B QL RT-PCR Negative (Negative); RSV RNA, RT-PCR Negative (Negative); SARS-CoV-2 RNA PCR Negative
[2022-07-14] MEDS: ESMOLOL HCL 2,500 MG/250 ML 2,500 MG/250 ML BAG 17.46 MG IV CONT (17:23)
[2022-07-14 18:09] LABS: Reflex Lactic Acid Yes or No Add Lactic
--- NOTE | 2022-07-14 18:41 | PC.NURSE ---
To [facility] in [place] via [facility]. 2 units PRBC sent with EMS in case blood was needed during transport.
--- NOTE | 2022-07-14 18:53 | PC.NURSE ---
Report called to Liv in ICU at [facility].
== END 2022-07-14 18:56 | disposition short-term general hospital (02) ==
LOC: ANHED 16:45
PROVIDERS: Emergency Provider Emergency Medicine; PCP Internal Medicine
DX: I71.010 Dissection of ascending aorta (principal); I48.91 Unspecified atrial fibrillation; R06.02 Shortness of breath; C34.90 Malignant neoplasm of unspecified part of unspecified bronchus or lung; Z20.822 Contact with and (suspected) exposure to COVID-19
CPT/HCPCS: 36415; 36430; 36600; 71275; 74177; 80053; 82805; 83605; 83880; 84484; 85025; 85610; 85730; 86850; 86900; 86901; 86923; 87040; 87637; 93005; 96360; 96361; 99285; J7030; P9016; Q9967